=== PATIENT | female | born 1965 | race Caucasian/White ===

== ENCOUNTER 2022-10-18 15:10 | Emergency (ER) | payer OTHER ==
[~2022-10-18] VITALS: Ht 162.6 cm; Wt 60.3 kg
[2022-10-18 15:39] VITALS: BP 126/72; PULSE 72; RESP 18; TEMP 97.8; O2SAT 98
[2022-10-18] MEDS ORDERED: ONDANSETRON 4 MG ODT PO ONE (16:25)
[2022-10-18] MEDS ORDERED: MORPHINE SULFATE 4 MG/ML SYR IM ONE (16:25)
[2022-10-18 16:40] LABS: BASOPHILS % (AUTO) 0.5 % (0.0-2.0); EOSINOPHILS % (AUTO) 0.4 % (0.0-4.0); HEMATOCRIT 39.6 % (36-48); HEMOGLOBIN 13.3 g/dL (12.0-16.0); LYMPHOCYTES # (AUTO) 1.3 K/uL (2.5-16.5); LYMPHOCYTES % (AUTO) 13.5 % (20.5-51.1); MEAN CORPUSCULAR HEMOGLOBIN 30 pg (27-31); MEAN CORPUSCULAR HGB CONC 34 g/dL (33-37); MEAN CORPUSCULAR VOLUME 89.7 fL (80-94); MONOCYTES # (AUTO) 0.2 K/uL (0.8-1.0); MONOCYTES % (AUTO) 2.4 % (1.7-9.3); NEUTROPHILS # (AUTO) 7.8 K/uL (1.8-7.7); NEUTROPHILS % (AUTO) 83.2 % (42.2-75.2); PLATELET COUNT (AUTO) 383 K/uL (140-450); RED BLOOD CELL COUNT(AUTO) 4.41 MIL/uL (4.20-5.40); RED CELL DISTRIBUTION WIDTH 13.8 % (11.6-13.7); WHITE BLOOD COUNT (AUTO) 9.4 K/uL (4.8-10.8)
--- NOTE | 2022-10-18 16:45 | NUR ---
pt wheeled from lobby to xray in wheel chair
[2022-10-18 16:56] LABS: APPEARANCE,URINE CLEAR (CLEAR); BILIRUBIN,URINE NEGATIVE (NEGATIVE); BLOOD, URINE NEGATIVE (NEGATIVE); COLOR,URINE YELLOW (YELLOW); LEUKOCYTE ESTERASE ,URINE 2+ (NEGATIVE); NITRITE, URINE NEGATIVE (NEGATIVE); PH,URINE 5.5 (5.0-9.0); UGLUCOSE NEGATIVE (NEGATIVE)
--- NOTE | 2022-10-18 17:00 | NUR ---
pt ambulated to room 11 with daughter
--- NOTE | 2022-10-18 17:17 | NUR ---
pt medicated per MD order. NADR. PORTER verbalized
[2022-10-18 17:28] LABS: RBC,URINE 0-5 /HPF (0-5)
--- NOTE | 2022-10-18 17:28 | NUR ---
pt wheeled to ct scan
--- NOTE | 2022-10-18 17:30 | NUR ---
MD at bedside assessing pt
[2022-10-18] MEDS ORDERED: CEPH-588 PO (17:58)
[2022-10-18] MEDS ORDERED: CYCL-711 PO (17:58)
[2022-10-18] MEDS ORDERED: NAPR-1704 PO (17:58)
[2022-10-18 18:22] LABS: ALBUMIN 3.7 g/dL (3.4-5.0); CARBON DIOXIDE 22.2 mmol/L (21-32); CREATININE 0.8 mg/dL (0.6-1.3); POTASSIUM 4.2 mmol/L (3.5-5.1); TOTAL BILIRUBIN 0.2 mg/dL (0.0-1.0)
[2022-10-18 18:55] VITALS: BP 126/69; PULSE 63; RESP 18; TEMP 97.8; O2SAT 96
--- NOTE | 2022-10-18 18:55 | NUR ---
Patient discharged with v/s stable. Written and verbal after care instructions given and explained. Patient alert, oriented and verbalized understanding of instructions. Ambulatory with steady gait. All questions addressed prior to discharge. ID band removed. Patient advised to follow up with PMD. Rx of keflex,flexeril,naprosyn given. Patient educated on indication of medication including possible reaction and side effects. Opportunity to ask questions provided and answered.
== END 2022-10-18 18:55 | disposition home or self-care (01) ==
LOC: MED 15:10
DX: S20.211A Contusion of right front wall of thorax, initial encounter (principal); N39.0 Urinary tract infection, site not specified; Z79.899 Other long term (current) drug therapy; X58.XXXA Exposure to other specified factors, initial encounter; Y93.89 Activity, other specified; Y92.89 Other specified places as the place of occurrence of the external cause; Y99.8 Other external cause status
CPT/HCPCS: 36415; 71045; 74176; 80053; 81001; 83690; 85025; 87086; 96372; 99285; J2270; Q0162